=== PATIENT | male | born 1950 | race Caucasian/White ===

== ENCOUNTER 2017-02-02 01:14 | Emergency (ER) | payer MEDICARE, MEDICAID ==
[2017-02-02 01:54] LABS: APPEARANCE CLEAR (CLEAR); COLOR YELLOW (YELLOW); SPECIFIC GRAVITY 1.015 (1.005-1.020)
[2017-02-02 01:55] LABS: BILIRUBIN NEGATIVE (NEGATIVE); GLUCOSE 1000 mg/dL (NEGATIVE); KETONE NEGATIVE (NEGATIVE); NITRITE NEGATIVE (NEGATIVE); PROTEIN NEGATIVE (NEGATIVE); UROBILINOGEN NORMAL (NORMAL)
[2017-02-02 01:58] LABS: UDS - AMPHET NEGATIVE QUAL (NEGATIVE); UDS - BARB NEGATIVE QUAL (NEGATIVE); UDS - BENZO NEGATIVE QUAL (NEGATIVE); UDS - COCAINE NEGATIVE QUAL (NEGATIVE); UDS - OPIATE NEGATIVE QUAL (NEGATIVE); UDS - PCP NEGATIVE QUAL (NEGATIVE); UDS - THC NEGATIVE QUAL (NEGATIVE)
[2017-02-02 02:42] LABS: BASOPHILS 0.1 % (0-2); EOSINOPHILS 0 % (0-7); HEMATOCRIT 45.3 % (42.0-54.0); IMMATURE GRANULOCYTES 0.1 % (0-5); LYMPHOCYTES 4.4 % (15-50); MCH 25.2 pg (26.0-34.0); MCHC 30.9 g/dL (31.0-37.0); MCV 81.5 fL (80.0-100.0); MONOCYTES 6.3 % (2-11); NEUTROPHILS 89.1 % (40-80); PLATELET COUNT 171 10x3/uL (130-400); RBC 5.56 10x6/uL (4.20-6.10); RDW 19.3 % (11.5-14.5); WBC 7.1 10x3/uL (4.8-10.8)
[2017-02-02 02:59] LABS: ALKALINE PHOSPHATASE 34 U/L (46-116); ALT (SGPT) 14 U/L (10-68); BILIRUBIN - TOTAL 0.54 mg/dL (0.2-1.3); CALC OSMOLALITY 274 mosm/kg (275-300); CARBON DIOXIDE 28.5 mmol/L (21.0-32.0); CHLORIDE - SERUM 100 mmol/L (98-107); CREATININE - SERUM 2.1 mg/dL (0.6-1.3); GLUCOSE 147 mg/dL (74-106); POTASSIUM - SERUM 4.5 mmol/L (3.5-5.1); PROTEIN - SERUM 6.3 g/dL (6.4-8.2); SODIUM 134 mmol/L (136-145); UREA NITROGEN 25 mg/dL (7-18); eGFR NON AFRICAN AMERICAN 34 mL/min (90-120)
[2017-02-02 03:06] LABS: AMYLASE - SERUM 36 U/L (25-115); LIPASE 79 U/L (73-393); PRO BNP 239 pg/mL (0-125)
[2017-02-02 03:08] LABS: TROPONIN-I < 0.017 ng/mL (0.000-0.060)
== END 2017-02-02 03:34 | disposition home or self-care (01) ==
LOC: D.ER 01:14
PROVIDERS: Family Medicine
DX: J11.1 Influenza due to unidentified influenza virus with other respiratory manifestations (principal); N28.9 Disorder of kidney and ureter, unspecified; E11.9 Type 2 diabetes mellitus without complications; Z79.4 Long term (current) use of insulin; R00.0 Tachycardia, unspecified

== ENCOUNTER → 2018-06-16 18:17 | Outpatient (CLI) | payer MEDICARE, MEDICAID | END | disposition home or self-care (01) | LOC: D.LABREF 18:17 | PROVIDERS: ATTEND Podiatrist Foot & Ankle Surgery | DX: L03.116 Cellulitis of left lower limb (principal) ==

== ENCOUNTER 2018-07-06 14:19 | Emergency (ER) | payer MEDICARE, MEDICAID | END 2018-07-06 16:40 | disposition left against medical advice (07) | LOC: D.ER 14:19 | DX: R21 Rash and other nonspecific skin eruption (principal) ==